=== PATIENT | female | born 1965 | race Caucasian/White ===

== ENCOUNTER 2018-04-03 10:13 | Emergency (ER) | payer SELFPAY ==
--- NOTE | 2018-04-03 10:31 | ER Document Report ---
HPI - HPI Patient complains to provider of: jaw and teeth pain Onset: Other - Several days and worse at 3 AM Onset/Duration: Persistent, Worse Pain Level: 5 Context: 52-year-old smoker with poor dentition started having gum irritation on the left side of her upper and lower mouth several days ago. got Listerine to use and was brushing her teeth with it. It was sore on that side but got much worse at 3 AM she had to pace the floor and says that she saw some sores on her gums yesterday. No fever or chills. No facial swelling. No neck pain. No chest pain or shortness of breath. No left arm pain. No radiculopathy, no numbness. Exacerbated by: Other - opening mouth Relieved by: Denies Similar symptoms previously: No Recently seen / treated by doctor: No - ROS ROS below otherwise negative: Yes Systems Reviewed and Negative: Yes All other systems reviewed and negative - REPRODUCTIVE Reproductive: DENIES: : Past Medical History - General Information source: Patient - Social History Smoking Status: Current Every Day Smoker Lives with: Family Family History: Reviewed & Not Pertinent Psychiatric Medical History: Reports: Hx Anxiety, Hx Depression Past Surgical History: Reports: Hx Cholecystectomy, Hx Hysterectomy - Immunizations Hx Diphtheria, Pertussis, Tetanus Vaccination: No Vertical Provider Document - CONSTITUTIONAL Agree With Documented VS: Yes Exam Limitations: No Limitations - INFECTION CONTROL TRAVEL OUTSIDE OF THE [place] IN LAST 30 DAYS: No - HEENT Notes: Multiple teeth have been removed upper and lower she does have filled second molars top and bottom with extensive gingival retraction throughout her mouth. There is erythema and tenderness posterior upper and lower gingiva with small amount white tissue that sloughed in the area. There is no bleeding. No pus. No abscess or swelling. The tissue is tender and the gingiva that is retracted near the teeth is very tender. - NECK Neck: Supple. negative: Lymphadenopathy-Left, Lymphadenopathy-Right - NEURO Level of Consciousness: Alert Course - Vital Signs Vital signs: Temp Pulse Resp BP Pulse Ox 97.9 F 69 18 150/87 H 98 04/03/18 10:17 04/03/18 10:17 04/03/18 10:17 04/03/18 10:17 04/03/18 10:17 Discharge - Discharge Clinical Impression: Gingivitis, Dental decay Condition: Good Disposition: HOME, SELF-CARE Instructions: Acetaminophen, Dentist, Ibuprofen (General) ([facility]), Toothache ([facility] ), Topical Lidocaine ([facility]) Additional Instructions: continue the mouthwash, rinse well gentle teeth brushing see the dentist Penicillin 4 times a day Return to the emergency room for any worsening of the symptoms swelling fever Prescriptions: Penicillin V Potassium [Penicillin Vk 500 mg Tablet] 500 mg PO QID #40 tablet
[2018-04-03] MEDS ORDERED: ACETAMINOPHEN 325 MG TABLET PO ONE (10:32)
[2018-04-03] MEDS ORDERED: PENICILLIN V POTASSIUM 500 MG TABLET PO ONE (10:32)
[2018-04-03] MEDS ORDERED: LIDOCAINE 2% VISCOUS SOLN 20 ML UDCUP PO ONE (10:32)
[2018-04-03 10:49] VITALS: BP 148/88
== END 2018-04-03 10:51 | disposition home or self-care (01) ==
LOC: ER 10:13
DX: K05.10 Chronic gingivitis, plaque induced (principal); K02.9 Dental caries, unspecified; F17.200 Nicotine dependence, unspecified, uncomplicated
CPT/HCPCS: 99283; J3490

== ENCOUNTER 2018-05-06 09:58 | Emergency (ER) | payer SELFPAY ==
[2018-05-06 10:03] VITALS: BP 134/88
[2018-05-06] MEDS ORDERED: CLINDAMYCIN 600 MG/D5W RTU 600 MG/50 ML RTUPB IV ONE (10:42)
--- NOTE | 2018-05-06 10:43 | ER Document Report ---
ED Medical Screen (RME) - General Chief Complaint: Toothache Stated Complaint: POSSIBLE TOOTH INFECTION Time Seen by Provider: 05/06/18 10:38 TRAVEL OUTSIDE OF THE [place] IN LAST 30 DAYS: No - HPI Notes: 05/06/18 10:43 Left facial swelling in the last 24 hours patient has looks to be a dental abscess tooth #19/18 - Related Data Allergies/Adverse Reactions: morphine [Morphine] Allergy (Verified 05/06/18 09:58) Past Medical History - Social History Drug Abuse: None Renal/ Medical History: Denies: Hx Peritoneal Dialysis Psychiatric Medical History: Reports: Hx Anxiety, Hx Depression Past Surgical History: Reports: Hx Cholecystectomy, Hx Hysterectomy - Immunizations Hx Diphtheria, Pertussis, Tetanus Vaccination: No Review of Systems - Review of Systems EENT: Dental problem Physical Exam - Vital signs Vitals: Temp Pulse Resp BP Pulse Ox 98.5 F 68 18 134/88 H 96 05/06/18 10:00 05/06/18 10:00 05/06/18 10:00 05/06/18 10:00 05/06/18 10:00 - HEENT Head: Normocephalic Eyes: Normal - Respiratory Respiratory status: No respiratory distress Chest status: Nontender Breath sounds: Normal Chest palpation: Normal - Cardiovascular Rhythm: Regular Heart sounds: Normal auscultation Course - Vital Signs Vital signs: Temp Pulse Resp BP Pulse Ox 98.5 F 68 18 134/88 H 96 05/06/18 10:00 05/06/18 10:00 05/06/18 10:00 05/06/18 10:00 05/06/18 10:00
[2018-05-06] MEDS ORDERED: LIDOCAINE 2% VISCOUS SOLN 20 ML UDCUP PO ONE (11:19)
--- NOTE | 2018-05-06 11:19 | ER Document Report ---
HPI - HPI Time Seen by Provider: 05/06/18 10:38 Pain Level: 5 Notes: Patient is a 52-year-old female who presents to the ED complaining of left lower dental pain #18 3 days, with swelling that started x1 day. She has not noticed any obvious purulent discharge. Patient states that she is still able to eat and drink, but does have a decreased p.o. intake due to the pain. She has tried some [id number] meds with minimal relief. Patient has repeatedly verbalized that she is not here for an incision and drainage and just wants to be placed on penicillin specifically and discharged. Patient states that clindamycin does not work for her and she does not want clindamycin. No other concerns or complaints. Denies any headache, fever, head injury, neck pain, hoarseness, drooling, URI, sore throat, chest pain, palpitations, syncope, cough, shortness of breath, wheeze, dyspnea, abdominal pain, nausea/vomiting/diarrhea, urinary retention, dysuria, hematuria, or rash. - ROS Systems Reviewed and Negative: Yes All other systems reviewed and negative - REPRODUCTIVE Reproductive: DENIES: : Past Medical History - Social History Smoking Status: Current Every Day Smoker Drug Abuse: None Family History: Reviewed & Not Pertinent Patient has suicidal ideation: No Patient has homicidal ideation: No Renal/ Medical History: Denies: Hx Peritoneal Dialysis Psychiatric Medical History: Reports: Hx Anxiety, Hx Depression Past Surgical History: Reports: Hx Cholecystectomy, Hx Hysterectomy - Immunizations Hx Diphtheria, Pertussis, Tetanus Vaccination: No Vertical Provider Document - CONSTITUTIONAL Agree With Documented VS: Yes Notes: PHYSICAL EXAMINATION: GENERAL: Well-appearing, well-nourished and in no acute distress. HEAD: Atraumatic, normocephalic. EYES: Pupils equal round and reactive to light, extraocular movements intact, sclera anicteric, conjunctiva are normal. ENT: EAC clear b/l. TM's intact b/l without erythema, fluid, or perforation. Nares patent and without discharge. oropharynx clear without exudates. No tonsilar hypertrophy or erythema. Moist mucous membranes. No sinus tenderness. Uvula midline. No palatine shift. No tongue protrusion. No respiratory compromise. Mouth: Poor dentition. + decay and mild gingivitis. No obvious superficial abscess or discharge noted. + left lower mild facial swelling. + tenderness to tooth #18. NECK: Normal range of motion, supple without lymphadenopathy. No rigidity/ meningismus. LUNGS: Breath sounds clear to auscultation bilaterally and equal. No wheezes rales or rhonchi. HEART: Regular rate and rhythm without murmurs, rubs, gallops. NEUROLOGICAL: Cranial nerves grossly intact. Normal speech, normal gait. Normal sensory, motor exams PSYCH: Normal mood, normal affect. SKIN: Warm, Dry, normal turgor, no rashes or lesions noted. - INFECTION CONTROL TRAVEL OUTSIDE OF THE [place] IN LAST 30 DAYS: No Course - Re-evaluation Re-evalutation: 05/06/18 11:17 Patient is an afebrile, well-hydrated, 52-year-old female who presents to the ED with dental pain, suspect nerve root etiology versus infection. Vitals are acceptable. PE is otherwise unremarkable. Pt does not want any imaging performed and "wants to go home." Risk/benefit understood. No I&D warranted at this time based on H&P. Pt has adamantly declined wanting an I&D performed regardless of PE findings. Pt aware her symptoms may progress and she may end up needing an I&D. Viscous lidocaine dispensed today. I will send her home with a prescription for penicillin per pt request and not cleocin. Dr. Wilson is in agreement with dispo/plan. Low suspicion for any meningitis, sepsis, peritonsillar/pharyngeal abscess, respiratory compromise, Bassam's, temporal arteritis, or other emergent systemic condition at this time. Patient is aware this condition can change from initial presentation and she needs to monitor symptoms closely. Conservative measures otherwise for symptoms. Call to schedule an appointment with a dentist for further evaluation and management. Recheck with your PCM this week as well. Return to the ED with any worsening/concerning symptoms otherwise as reviewed in discharge. Patient is in agreement. - Vital Signs Vital signs: Temp Pulse Resp BP Pulse Ox 98.5 F 68 18 134/88 H 96 05/06/18 10:00 05/06/18 10:00 05/06/18 10:00 05/06/18 10:00 05/06/18 10:00 - Laboratory Result Diagrams: 05/06/18 11:01 05/06/18 11:01 Discharge - Discharge Clinical Impression: Pain, dental Condition: Stable Disposition: HOME, SELF-CARE Instructions: Dental Infection or Abscess ([facility]), Penicillin V K ([facility]), Toothache ([facility]) Additional Instructions: [place] and floss twice daily Maintain fluid intake Take antibiotics as directed Mouthwash, salt water gargles, peroxide rinse as needed Tylenol/ibuprofen as needed Recheck with PCM this week Call today/tomorrow and schedule an appointment with your dentist for further evaluation Return to the ED with any worsening symptoms and/or development of fever, headache, facial swelling, swelling of lips/tongue/throat, trouble swallowing, drooling, hoarseness, neck pain/stiffness, chest pain, palpitations, syncope, shortness of breath, trouble breathing, abdominal pain, n/v/d, numbness/tingling , or other worsening symptoms that are concerning to you. Prescriptions: Penicillin V Potassium [Penicillin Vk 500 mg Tablet] 500 mg PO TID #30 tablet Forms: Elevated Blood Pressure, Smoking Cessation Education Referrals: [facility] [Provider Group] - Follow up in 3-5 days
[2018-05-06 11:20] LABS: ABSOLUTE BASOPHILS # (AUTO) 0.1 10^3/uL (0.0-0.2); ABSOLUTE EOSINOPHILS # (AUTO) 0.4 10^3/uL (0.0-0.6); ABSOLUTE LYMPHOCYTES (AUTO) 1.5 10^3/uL (0.5-4.7); ABSOLUTE MONOCYTES (AUTO) 0.5 10^3/uL (0.1-1.4); ABSOLUTE NEUT (AUTO) 5.4 10^3/uL (1.7-8.2); BASOPHILS % (AUTO) 0.9 % (0-2); EOSINOPHILS % (AUTO) 4.8 % (0-6); HEMATOCRIT 44.8 % (36.0-47.0); HEMOGLOBIN 15.1 g/dL (12.0-15.5); LYMPHOCYTES % (AUTO) 19.5 % (13-45); MEAN CORPUSCULAR HEMOGLOBIN 32.5 pg (27.0-33.4); MEAN CORPUSCULAR HGB CONC 33.7 g/dL (32.0-36.0); MEAN CORPUSCULAR VOLUME 97 fl (80-97); MONOCYTES % (AUTO) 6.5 % (3-13); PLATELET COUNT 335 10^3/uL (150-450); RED BLOOD COUNT 4.64 10^6/uL (3.72-5.28); RED CELL DISTRIBUTION WIDTH 13.5 % (11.5-14.0); SEGMENTED NEUTROPHILS % (AUTO) 68.3 % (42-78); TOTAL CELLS COUNTED % (AUTO) 100 %; WHITE BLOOD COUNT 7.9 10^3/uL (4.0-10.5)
[2018-05-06 11:38] LABS: ANION GAP 9 (5-19); BLOOD UREA NITROGEN 13 mg/dL (7-20); CALCIUM 9.3 mg/dL (8.4-10.2); CARBON DIOXIDE 30 mmol/L (22-30); CHLORIDE 105 mmol/L (98-107); GLUCOSE 103 mg/dL (75-110); POTASSIUM 4.3 mmol/L (3.6-5.0); SODIUM 143.5 mmol/L (137-145)
== END 2018-05-06 11:37 | disposition home or self-care (01) ==
LOC: ER 09:58
DX: K08.9 Disorder of teeth and supporting structures, unspecified (principal); R22.0 Localized swelling, mass and lump, head; Z90.49 Acquired absence of other specified parts of digestive tract; Z90.710 Acquired absence of both cervix and uterus
CPT/HCPCS: 99283; 96365; 36415; 85025; 80048; J3490

== ENCOUNTER 2019-11-11 10:24 | Emergency (ER) | payer SELFPAY ==
[2019-11-11 10:53] VITALS: BP 126/88
--- NOTE | 2019-11-11 11:19 | ER Document Report ---
ED Medical Screen (RME) - General Chief Complaint: Urinary Incontinence Stated Complaint: URINARY INCONTINENCE/PAIN Time Seen by Provider: 11/11/19 11:13 Notes: HPI: 54-year-old female presenting to the emergency department complaining of right hip pain, incontinence of urine. Patient was playing football with her family 2 weeks ago. Patient states the ball struck her in the mouth and she fell backwards landing on the right hip and low back region. Patient states she had some occasional twinges of discomfort, states she does have a bruise over the right gluteal region and some pain that radiates from the right hip and down through the anterior and lateral right leg to the level of the knee. Patient states that over the last several days she is started to have some incontinence issues especially when the pain suddenly becomes much worse. Today she went out to smoke on her porch and suddenly became incontinence without the pain or discomfort concerning her enough to come to the emergency department today. Denies hitting her head. Denies headache neck pain chest pain shortness of breath abdominal or flank pain. She has not had a fever does not believe she has a UTI PHYSICAL EXAMINATION: Limited exam in triage, no direct tenderness over the lumbar spine on palpation. No saddle anesthesia on exam. Patient with intact strength bilateral lower extremities equally I have greeted and performed a rapid initial assessment of this patient. A comprehensive ED assessment and evaluation of the patient, analysis of test results and completion of medical decision making process will be conducted by an additional ED providers. TRAVEL OUTSIDE OF THE [place] IN LAST 30 DAYS: No - Related Data Allergies/Adverse Reactions: morphine [Morphine] Allergy (Verified 05/06/18 09:58) Past Medical History Renal/ Medical History: Denies: Hx Peritoneal Dialysis Psychiatric Medical History: Reports: Hx Anxiety, Hx Depression Past Surgical History: Reports: Hx Cholecystectomy, Hx Hysterectomy - Immunizations Hx Diphtheria, Pertussis, Tetanus Vaccination: No Physical Exam - Vital signs Vitals: Temp Pulse Resp BP Pulse Ox 98.5 F 83 20 126/88 H 97 11/11/19 10:51 11/11/19 10:51 11/11/19 10:51 11/11/19 10:51 11/11/19 10:51 Course - Vital Signs Vital signs: Temp Pulse Resp BP Pulse Ox 98.5 F 83 20 126/88 H 97 11/11/19 10:51 11/11/19 10:51 11/11/19 10:51 11/11/19 10:51 11/11/19 10:51
--- NOTE | 2019-11-11 12:10 | RADIOLOGY REPORT (SQ) ---
EXAM DESCRIPTION: HIP RIGHT AP/LATERAL IMAGES COMPLETED DATE/TIME: 11/11/2019 11:47 am REASON FOR STUDY: fall COMPARISON: None. NUMBER OF VIEWS: Two views. TECHNIQUE: AP pelvis and additional frog-leg view of the right hip. LIMITATIONS: None. FINDINGS: MINERALIZATION: Normal. RIGHT HIP: No fracture or dislocation. No worrisome bone lesions. LEFT HIP: No fracture or dislocation. No worrisome bone lesions. PUBIS AND ISCHIUM: No fracture. PELVIS: No fracture. SACRUM: No fracture or dislocation. No worrisome bone lesions. LOWER LUMBAR SPINE: No fracture or dislocation. No worrisome bone lesions. No significant disc disea se. SOFT TISSUES: No findings. OTHER: No other significant finding. IMPRESSION: NEGATIVE STUDY OF THE RIGHT HIP. NO RADIOGRAPHIC EVIDENCE OF ACUTE INJURY. TECHNICAL DOCUMENTATION: JOB ID: [id number] 2010 [employer]- All Rights Reserved Reading location - IP/workstation name: [email or web address]
--- NOTE | 2019-11-11 12:13 | RADIOLOGY REPORT (SQ) ---
EXAM DESCRIPTION: L SPINE WHOLE IMAGES COMPLETED DATE/TIME: 11/11/2019 11:47 am REASON FOR STUDY: fall/incontinence urine COMPARISON: None. NUMBER OF VIEWS: Five views including obliques. TECHNIQUE: AP, lateral, oblique, and sacral radiographic images acquired of the lumbar spine. LIMITATIONS: None. FINDINGS: MINERALIZATION: Normal. SEGMENTATION: Normal. No transitional anatomy. ALIGNMENT: Normal. VERTEBRAE: Maintained height. No fracture or worrisome bone lesion. DISCS: Mild loss of L4/5 intervertebral disc heights. POSTERIOR ELEMENTS: Pedicles and facets are intact. No pars defect or posterior arch defects. HARDWARE: None in the spine. PARASPINAL SOFT TISSUES: Atherosclerotic vascular calcifications localize to the abdominal aorta. Ri ght upper quadrant surgical clips. PELVIS: Intact as visualized. No fractures or worrisome bone lesions. SI joints intact. OTHER: No other significant finding. IMPRESSION: No evidence of acute osseous injury. Background of degenerative changes and atheroscler osis. TECHNICAL DOCUMENTATION: JOB ID: [id number] 2010 [employer]- All Rights Reserved Reading location - IP/workstation name: [email or web address]
[2019-11-11 16:30] LABS: APPEARANCE,URINE SLIGHTLY-CLOUDY; BILIRUBIN,URINE NEGATIVE (NEGATIVE); COLOR,URINE YELLOW; GLUCOSE, URINE NEGATIVE (NEGATIVE); KETONES,URINE NEGATIVE (NEGATIVE); LEUKOCYTE ESTERASE,URINE NEGATIVE (NEGATIVE); NITRITE,URINE NEGATIVE (NEGATIVE); PROTEIN,URINE NEGATIVE (NEGATIVE); URINE SPECIFIC GRAVITY 1.017; UROBILINOGEN,URINE NEGATIVE mg/dL (<2.0)
== END 2019-11-11 13:50 | disposition left against medical advice (07) ==
LOC: ER 10:24
DX: R32 Unspecified urinary incontinence (principal); M25.551 Pain in right hip; W21.01XA Struck by football, initial encounter; W18.39XA Other fall on same level, initial encounter; Y93.61 Activity, american tackle football; F17.200 Nicotine dependence, unspecified, uncomplicated; Z88.6 Allergy status to analgesic agent; Z88.5 Allergy status to narcotic agent; Z53.20 Procedure and treatment not carried out because of patient's decision for unspecified reasons
CPT/HCPCS: 72110; 81001; 99281